=== PATIENT | male | born 1940 | race Caucasian/White ===

== ENCOUNTER → 2016-09-06 | Outpatient (CLI) | payer MEDICARE ==
[~2016-09-06] MED LIST: ALBU8I INH; ASCO500C PO; ATOR40TA49 PO; CARV6.252 PO; CLON.1 PO; CLOT1CRE TOP; COZA50TA PO; FENO1TAB76 PO; FURO1TAB93 PO; HYDR-2768 PO; PRED20 PO; PROS5TAB2 PO; VALA500 PO; VITA200017 PO
--- NOTE | 2016-09-07 09:30 | RSPPFT ---
DATE OF PROCEDURE: 09/06/16 COMMENTS: Spirometry with FVC of 2.3 predicted 3.9, FEV1 of 1.5 predicted 2.6, FEV1/FVC ratio 66% predicted 65%. Air trapping is present with RV at 3.0 predicted 2.4. DLCO is 34% of predicted. IMPRESSION: On the basis of the above, patient has an obstructive lung defect with air trapping and decreased DLCO.
== END ==
LOC: HRSP 13:02
PROVIDERS: ATTEND Internal Medicine Pulmonary Disease
DX: J84.10 Pulmonary fibrosis, unspecified (principal)
CPT/HCPCS: 94060; 94620; 94726; 94729

== ENCOUNTER → 2017-01-24 | Day surgery (SDC) | payer MEDICARE ==
[~2017-01-24] VITALS: Ht 172.7 cm; Wt 100.4 kg
[~2017-01-24] MED LIST changes: -ALBU8I INH; +ALBUAER3 INH; -ASCO500C PO; +ATOR40TA16 PO; -ATOR40TA49 PO; +BACITRACIN TOP OINT 15 GM TUBE ONE; +CEPH-459 PO; +CHLORHEXIDINE GLUCONATE 2 % 1 PACK (2 CLOTHS) TOPICAL PRN; +CIPR-9 PO; -CLON.1 PO; +CLON0.1D T-DERMAL; +CLON0.1T PO; -CLOT1CRE TOP; -COZA50TA PO; +DO NOT ADM ANY ANTICOAGULANT DRUGS PRN; +FAMOTIDINE 20 MG/2 ML VIAL ONE; -FENO1TAB76 PO; +FENO48TA PO; +FINA5TAB2 PO; -FURO1TAB93 PO; +FURO40TA PO; -HYDR-2768 PO; +INSULIN HUMAN REGULAR 1,000 UNITS/10 ML VIAL SQ PRN; +LACTATED RINGER'S 1000 ML IV PRN; +LOSA50TA PO; +LOTR1CRE TOPICAL; +METOPROLOL TARTRATE 25 MG TAB PO PRN; +MIDAZOLAM HCL 2 MG/2 ML VIAL ONE; +ONDANSETRON HCL 4 MG/2 ML VIAL IV PUSH ONE; +ONDANSETRON HCL 4 MG/2 ML VIAL IV PUSH PRN; +PERC5TAB12 PO; +PHENYLEPH/NS 1000 MCG/10 ML SYR IV ONE; +POVIDONE IODINE 5% (ANTISEPSIS KIT) 4 APPLICATIONS EACH NARE PRN; +PRED10 PO; -PRED20 PO; +PROPOFOL 200 MG/20 ML AMP IV ONE; -PROS5TAB2 PO; +SODIUM CHLORID 0.9% 500 ML IV PRN; -VALA500 PO; +VITA2000 PO; -VITA200017 PO; +VITA500T83 PO; +ceFAZolin 2 GM PREMIX 50 ML IV SCH; +ePHEDrine/NS 25 MG/5 ML SYR IV ONE; +oxyCODONE/ACETAMINOPHEN 5 MG/325 MG TAB PO PRN
[2017-01-24 10:07] LABS: AUTOMATED NEUTROPHIL # 8.2 TH/MM3 (1.8-7.7); BASOPHIL # 0.1 TH/MM3 (0-0.2); BASOPHIL % 0.6 % (0.0-2.0); EOSINOPHIL # 0.4 TH/MM3 (0-0.4); EOSINOPHIL % 3.3 % (0.0-4.0); HEMATOCRIT 40.5 % (39.0-51.0); HEMO FLAGS DIFF FINAL; LYMPHOCYTE # 1.7 TH/MM3 (1.0-4.8); MEAN CELL VOLUME 87.4 FL (80.0-100.0); MEAN CORPUSCULAR HGB CONC 33.1 % (32.0-36.0); MONO % 8.1 % (0.0-8.0); PLATELET COUNT 224 TH/MM3 (150-450); RED BLOOD COUNT 4.64 MIL/MM3 (4.50-5.90); RED CELL DISTRIBUTION WIDTH 14.6 % (11.6-17.2); WHITE BLOOD COUNT 11.2 TH/MM3 (4.0-11.0)
--- NOTE | 2017-01-24 14:31 | EKG ---
Date Performed: 01/24/2017 Time Performed: 09:56:53 PTAGE: 76 years EKG: SINUS BRADYCARDIA LOW QRS VOLTAGE IN PRECORDIAL LEADS NONSPECIFIC T-WAVE ABNORMALITY BORDER LINE ECG Compared to prior tracing no significant change PREVIOUS TRACING : 01/18/2015 13.24 DOCTOR: Garth Wooten Interpretating Date/Time 01/24/2017 14:26:44
--- NOTE | 2017-01-24 16:37 | PD.OP ---
Operative Report Date of Surgery: Jan 24, 2017 Preoperative Diagnosis: (1) BPH (benign prostatic hypertrophy) with urinary obstruction (2) Disorder of male genital organ Postoperative Diagnosis: (1) BPH (benign prostatic hypertrophy) with urinary obstruction (2) Disorder of male genital organ Procedure: Cystoscopy and scrotal recession procedure Anesthesia: General Surgeon: Clay Kaplan Maid Supervisor(s): None Operation and Findings: Indication for procedure: Case of a pleasant 76-year-old gentleman with a gentle abnormality and lower urinary tract symptoms who presents now for cystoscopic evaluation and a scrotal recession procedure. Operative procedure in detail: Patient was brought to the operating suite and placed supine on the OR table. He was then placed under general anesthesia. He was then repositioned in the dorsolithotomy position and prepped and draped in normal sterile fashion. After appropriate timeout was undertaken I proceeded with cystoscopic evaluation utilizing the rigid cystoscope with the 20 Macedonian sheath and 30 lens. The urethra was patent without stricture formation, the prostatic urethra was patent without significant obstruction and further passive cystoscope within the urinary bladder revealed both right and left ureteral orifices to be in correct anatomic position effluxing clear yellow urine. The bladder itself was mild to moderately trabeculated. There was no evidence of any bladder tumor or stone formation. The patient was then repositioned in the supine position and reprepped and draped again in normal sterile fashion. The focus of attention now was towards correcting the genital deformity with high attachment of the scrotum to the distal penile shaft. A transverse incision was made with the scrotum attached to distal penile shaft approximately 3 cm in length. The tissue edges were mobilized and then the wound was closed utilizing a Heineke-Mikulicz type closure with recession of the scrotum. Both 3-0 and 2-0 chromic suture material was utilized to effect this closure with 3-0 chromic on the penile shaft and 2-0 chromic on the scrotal edges. Once the wound was closed adequate cosmesis was achieved. Neosporin ointment was placed at the wound site and a dressing applied that consisted of fluffed gauze held in place with mesh panties. The patient tolerated the procedures without complications and was transferred to PACU in satisfactory condition. Clay Kaplan MD Jan 24, 2017 16:37
[2017-01-24 18:10] VITALS: BP 186/78; PULSE 55; RESP 16; TEMP 97.5; O2SAT 94
== END | disposition home or self-care (01) ==
LOC: HSDC 08:51
PROVIDERS: ATTEND Urology
DX: N40.1 Benign prostatic hyperplasia with lower urinary tract symptoms (principal); N13.8 Other obstructive and reflux uropathy; R33.8 Other retention of urine; N41.1 Chronic prostatitis; I10 Essential (primary) hypertension; R73.03 Prediabetes; M06.9 Rheumatoid arthritis, unspecified; Z95.5 Presence of coronary angioplasty implant and graft; Z87.891 Personal history of nicotine dependence; Z01.810 Encounter for preprocedural cardiovascular examination; Z01.818 Encounter for other preprocedural examination
CPT/HCPCS: 00920; 52000; 55175; 85025; 93005; J0690; J2250; J2370; J2405; J3010; J7120

== ENCOUNTER 2017-04-27 20:14 | Emergency (ER) | payer MEDICARE ==
[~2017-04-27 20:14] MED LIST changes: -BACITRACIN TOP OINT 15 GM TUBE ONE; -CEPH-459 PO; -CHLORHEXIDINE GLUCONATE 2 % 1 PACK (2 CLOTHS) TOPICAL PRN; -CIPR-9 PO; -DO NOT ADM ANY ANTICOAGULANT DRUGS PRN; -FAMOTIDINE 20 MG/2 ML VIAL ONE; -FURO40TA PO; -INSULIN HUMAN REGULAR 1,000 UNITS/10 ML VIAL SQ PRN; -LACTATED RINGER'S 1000 ML IV PRN; -LOTR1CRE TOPICAL; -METOPROLOL TARTRATE 25 MG TAB PO PRN; -MIDAZOLAM HCL 2 MG/2 ML VIAL ONE; -ONDANSETRON HCL 4 MG/2 ML VIAL IV PUSH ONE; -ONDANSETRON HCL 4 MG/2 ML VIAL IV PUSH PRN; -PERC5TAB12 PO; -PHENYLEPH/NS 1000 MCG/10 ML SYR IV ONE; -POVIDONE IODINE 5% (ANTISEPSIS KIT) 4 APPLICATIONS EACH NARE PRN; -PROPOFOL 200 MG/20 ML AMP IV ONE; -SODIUM CHLORID 0.9% 500 ML IV PRN; -ceFAZolin 2 GM PREMIX 50 ML IV SCH; -ePHEDrine/NS 25 MG/5 ML SYR IV ONE; -oxyCODONE/ACETAMINOPHEN 5 MG/325 MG TAB PO PRN
[2017-04-27 20:23] VITALS: BP 224/107; PULSE 102; RESP 22; TEMP 100.3; O2SAT 94
[2017-04-27] MEDS ORDERED: methylPREDNISolone SOD SUCC 125 MG/2 ML VIAL IV PUSH ONE (20:45)
[2017-04-27] MEDS ORDERED: ACETAMINOPHEN 325 MG TAB PO ONE (20:45)
--- NOTE | 2017-04-27 20:54 | PD ---
HPI Chief Complaint: Respiratory Distress Time Seen by Provider: 20:25 Travel History International Travel<30 days: No Contact w/Intl Traveler<30days: No Traveled to known affect area: No History of Present Illness HPI 76 YO M with PMH of pulmonary fibrosis, on Hospice presents to the ED via EMS for evaluation of fever, and worsening breathing difficulties. The family is at bedside and states that the patient had signed a DNR. However whenever he began to worsen today the family decided to seek treatment here in the ED. I discussed this with the hospice care provider and this was confirmed. PFSH Past Medical History Hx Anticoagulant Therapy: Yes Arthritis: Yes Asthma: No Blood Disorders: No Heart Rhythm Problems: No Cancer: No Cardiovascular Problems: Yes High Cholesterol: Yes Chemotherapy: No Chest Pain: Yes Congestive Heart Failure: No COPD: Yes Cerebrovascular Accident: No Diabetes: Yes ("BORDERLINE") Patient Takes Glucophage: No Diminished Hearing: Yes Endocrine: No GERD: Yes Glaucoma: No Genitourinary: No Hepatitis: No Hiatal Hernia: Yes Hypertension: Yes Immune Disorder: No Implanted Vascular Access Dvce: Yes Musculoskeletal: Yes (ARTHRITIS- BACK AND NECK PAIN) Neurologic: No Psychiatric: No Reproductive: Yes (BPH) Respiratory: Yes (PULMONARY FIBROSIS) Radiation Therapy: Yes Sleep Apnea: Yes Thyroid Disease: No Tetanus Vaccination: Unknown Past Surgical History Abdominal Surgery: No AICD: No Arteriovenous Shunt: No Body Medical Devices: CARDIAC STENTS Cardiac Surgery: Yes (STENT) Ear Surgery: No Endocrine Surgery: No Eye Surgery: No Genitourinary Surgery: Yes (CYSTOSCOPY, TURP) Gynecologic Surgery: No Insulin Pump: No Joint Replacement: No Oral Surgery: Yes (TONSILLECTOMY) Pacemaker: No Thoracic Surgery: Yes (BRONHOSCOPY- LUNG BIOPSY) Tonsillectomy: Yes Other Surgery: Yes (RIGHT SHOULDER 07/24/14) Social History Alcohol Use: Yes (OCC) Tobacco Use: No Substance Use: No Allergies-Medications (Allergen,Severity, Reaction): Coded Allergies: No Known Allergies (Verified , 02/16/17) Reported Meds & Prescriptions Reported Meds & Active Scripts Active Finasteride 5 Mg Tab 5 Mg PO DAILY Do not crush. Reported Clonidine 168 HR Patch (Clonidine HCl) 0.1 Mg/24 Hr Patch 1 Patch T-DERMAL Q7D Losartan (Losartan Potassium) 50 Mg Tab 50 Mg PO BID Fenofibrate 48 Mg Tab 48 Mg PO DAILY Clonidine (Clonidine HCl) 0.1 Mg Tab 0.1 Mg PO BID Vitamin D3 (Cholecalciferol) 2,000 Unit Cap 2,000 Units PO DAILY Carvedilol 6.25 Mg Tab 6.25 Mg PO BID Atorvastatin (Atorvastatin Calcium) 40 Mg Tab 80 Mg PO HS Vitamin C ER (Ascorbic Acid) 500 Mg Sundeep 500 Mg PO DAILY Proair Hfa 8.5 GM Inh (Albuterol Sulfate) 90 Mcg/Act Aer 2 Puff INH Q4-6H PRN 108 mcg/actuation Prednisone 10 Mg Tab 10 Mg PO DAILY Review of Systems Except as stated in HPI: all other systems reviewed are Neg Physical Exam Narrative GENERAL: Well-nourished, well-developed male, on 4 L nasal cannula, in no acute distress. Patient is responsive to painful stimuli only. Unable to answer questions. SKIN: Focused skin assessment warm/dry. HEAD: Normocephalic. EYES: No scleral icterus. No injection or drainage. NECK: Supple, trachea midline. No JVD or lymphadenopathy. CARDIOVASCULAR: Regular rate and rhythm without murmurs, gallops, or rubs. RESPIRATORY: Breath sounds tight, wheezing bilaterally. + accessory muscle use. GASTROINTESTINAL: Abdomen soft, non-tender, nondistended. MUSCULOSKELETAL: No cyanosis, or edema. BACK: Nontender without obvious deformity. No CVA tenderness. Data Data Last Documented VS Vital Signs Date Time Temp Pulse Resp B/P (MAP) Pulse Ox O2 Delivery O2 Flow Rate FiO2 04/27/17 21:15 15 96 Nasal Cannula 4.00 04/27/17 20:23 100.3 102 224/107 (146) Orders Orders Sepsis Workup Initiated (04/27/17 ) Electrocardiogram (04/27/17 20:37) Complete Blood Count With Diff (04/27/17 20:37) Comprehensive Metabolic Panel (04/27/17 20:37) Prothrombin Time / Inr (Pt) (04/27/17 20:37) Act Partial Throm Time (Ptt) (04/27/17 20:37) Lactic Acid Sepsis Protocol (04/27/17 20:37) Magnesium (Mg) (04/27/17 20:37) Troponin I (04/27/17 20:37) Urinalysis - C+S If Indicated (04/27/17 20:37) Blood Culture (04/27/17 20:37) Chest, Single Ap (04/27/17 20:37) Blood Glucose (04/27/17 20:37) Ecg Monitoring (04/27/17 20:37) Iv Access Insert/Monitor (04/27/17 20:37) Oximetry (04/27/17 20:37) Oxygen Administration (04/27/17 20:37) Albuterol Neb (Albuterol Neb) (04/27/17 20:45) Arterial Blood Gas (Abg) (04/27/17 ) Cefepime Inj (Maxipime Inj) (04/27/17 20:55) Azithromycin Inj (Zithromax Inj) (04/27/17 20:55) Acetaminophen Supp (Tylenol Supp) (04/27/17 21:15) Succinylcholine Inj (Quelicin Inj) (04/27/17 21:18) Etomidate Inj (Amidate Inj) (04/27/17 21:19) Ed Comfort Care (04/27/17 22:30) Hospice Consult (04/27/17 22:31) Labs Laboratory Tests Test 04/27/17 20:45 04/27/17 21:00 White Blood Count 13.5 TH/MM3 Red Blood Count 4.92 MIL/MM3 Hemoglobin 14.6 GM/DL Hematocrit 43.9 % Mean Corpuscular Volume 89.4 FL Mean Corpuscular Hemoglobin 29.8 PG Mean Corpuscular Hemoglobin Concent 33.3 % Red Cell Distribution Width 14.6 % Platelet Count 302 TH/MM3 Mean Platelet Volume 7.6 FL Neutrophils (%) (Auto) 69.4 % Lymphocytes (%) (Auto) 14.5 % Monocytes (%) (Auto) 8.7 % Eosinophils (%) (Auto) 6.9 % Basophils (%) (Auto) 0.5 % Neutrophils # (Auto) 9.4 TH/MM3 Lymphocytes # (Auto) 1.9 TH/MM3 Monocytes # (Auto) 1.2 TH/MM3 Eosinophils # (Auto) 0.9 TH/MM3 Basophils # (Auto) 0.1 TH/MM3 CBC Comment DIFF FINAL Differential Comment Prothrombin Time 10.1 SEC Prothromb Time International Ratio 0.9 RATIO Activated Partial Thromboplast Time 25.5 SEC Blood Urea Nitrogen 18 MG/DL Creatinine 1.38 MG/DL Random Glucose 116 MG/DL Total Protein 7.7 GM/DL Albumin 3.4 GM/DL Calcium Level 9.2 MG/DL Magnesium Level 1.8 MG/DL Alkaline Phosphatase 103 U/L Aspartate Amino Transf (AST/SGOT) 34 U/L Alanine Aminotransferase (ALT/SGPT) 37 U/L Total Bilirubin 0.6 MG/DL Sodium Level 136 MEQ/L Potassium Level 4.1 MEQ/L Chloride Level 96 MEQ/L Carbon Dioxide Level 34.1 MEQ/L Anion Gap 6 MEQ/L Estimat Glomerular Filtration Rate 50 ML/MIN Troponin I 0.07 NG/ML Lactic Acid Level 0.9 mmol/L MDM Medical Decision Making Medical Screen Exam Complete: Yes Emergency Medical Condition: Yes Differential Diagnosis End-stage pulmonary fibrosis versus organ failure versus sepsis versus other Narrative Course 76 YO M with PMH of pulmonary fibrosis, on Hospice presents to the ED via EMS for evaluation of fever, and worsening breathing difficulties. The family is at bedside and states that the patient had signed a DNR. However whenever he began to worsen today the family decided to seek treatment here in the ED. I discussed this with the hospice care provider and this was confirmed. Vitals reviewed. On physical exam the patient is struggling to breathe, unresponsive. ABG reveals pH of 7.27 with CO2 of 77. I discussed the patient's grave situation with the family who are at bedside. After some deliberation they have decided to sign a DNR and would like to have the patient admitted to hospice care here. Call placed to the hospice care nurse Leah. Patient will be admitted to the hospitalist service. Please see their notes for disposition. Yumiko Hardin Apr 27, 2017 20:54
[2017-04-27] MEDS ORDERED: AZITHROMYCIN INJ 500 MG in SODIUM CHLOR 0.9% 250 ML INJ 250 ML IV STA (20:55)
[2017-04-27] MEDS ORDERED: CEFEPIME INJ 2,000 MG in SODIUM CHLORIDE 0.9% INJ 100 ML IV STA (20:55)
[2017-04-27] MEDS: RESP: ALBUTEROL 2.5 MG/3 ML NEB (SCH) INH ×2 (21:02→21:03)
[2017-04-27 21:08] VITALS: O2SAT 97
[2017-04-27 21:15] VITALS: RESP 15; O2SAT 96
[2017-04-27] MEDS ORDERED: ACETAMINOPHEN 650 MG SUPP RECTAL ONE (21:15)
[2017-04-27] MEDS ORDERED: SUCCINYLCHOLINE CHLORIDE 200 MG/10 ML VIAL ONE (21:18)
[2017-04-27] MEDS ORDERED: ETOMIDATE 20 MG/10 ML VIAL ONE (21:19)
--- NOTE | 2017-04-27 21:27 | RADRPT ---
EXAM DATE/TIME: 04/27/2017 21:05 [facility] COMPARISON: CHEST SINGLE AP, January 18, 2015, 13:52. INDICATIONS : Shortness of breath. MEDICAL HISTORY : None. SURGICAL HISTORY : None. ENCOUNTER: Initial ACUITY: 1 day PAIN SCORE: Non-responsive. LOCATION: chest FINDINGS: A single view of the chest demonstrates stable, diffuse interstitial prominence most severe in the ap ices characteristic of some degree of fibrosis. I do not see a superimposed acute infiltrate or obvio us effusion. Heart size remains prominent. Small metallic pin in the proximal right humerus is charac teristic of a prior rotator cuff repair. Osseous structures are otherwise intact. CONCLUSION: Stable interstitial prominence characteristic of fibrosis, most prominent in the right apex. Nacho Villegas MD on April 27, 2017 at 21:21 Board Certified Radiologist. This report was verified electronically.
[2017-04-27 21:47] LABS: AUTOMATED NEUTROPHIL # 9.4 TH/MM3 (1.8-7.7); BASOPHIL # 0.1 TH/MM3 (0-0.2); BASOPHIL % 0.5 % (0.0-2.0); EOSINOPHIL # 0.9 TH/MM3 (0-0.4); EOSINOPHIL % 6.9 % (0.0-4.0); HEMATOCRIT 43.9 % (39.0-51.0); HEMO FLAGS DIFF FINAL; LYMPH % 14.5 % (9.0-44.0); LYMPHOCYTE # 1.9 TH/MM3 (1.0-4.8); MEAN CELL VOLUME 89.4 FL (80.0-100.0); MEAN CORPUSCULAR HEMOGLOBIN 29.8 PG (27.0-34.0); MEAN CORPUSCULAR HGB CONC 33.3 % (32.0-36.0); MONO % 8.7 % (0.0-8.0); NEUT % 69.4 % (16.0-70.0); PLATELET COUNT 302 TH/MM3 (150-450); RED BLOOD COUNT 4.92 MIL/MM3 (4.50-5.90); RED CELL DISTRIBUTION WIDTH 14.6 % (11.6-17.2); WHITE BLOOD COUNT 13.5 TH/MM3 (4.0-11.0)
[2017-04-27 21:56] LABS: APTT (PATIENT) 25.5 SEC (24.3-30.1); INTERNATIONAL NORMALIZED RATIO 0.9 RATIO; PROTHROMBIN TIME - PATIENT 10.1 SEC (9.8-11.6)
[2017-04-27 22:00] LABS: ANION GAP 6 MEQ/L (5-15); AST (GOT) 34 U/L (15-37); BICARBONATE 34.1 MEQ/L (21.0-32.0); BLOOD UREA NITROGEN 18 MG/DL (7-18); CHLORIDE 96 MEQ/L (98-107); GLOMERULAR FILTRATION RATE 50 ML/MIN (>89); MAGNESIUM 1.8 MG/DL (1.5-2.5); POTASSIUM 4.1 MEQ/L (3.5-5.1); SODIUM (NA) 136 MEQ/L (136-145)
[2017-04-27 22:01] LABS: ALT (GPT) 37 U/L (12-78)
[2017-04-27 22:05] LABS: ALKALINE PHOSPHATASE 103 U/L (45-117); TOTAL BILIRUBIN ADULT 0.6 MG/DL (0.2-1.0)
[2017-04-27 23:39] LABS: BLOOD GAS BASE EXCESS 7.8 mmol/L (-2-2); BLOOD GAS CARBOXYHEMOGLOBIN 1.2 % (0-4); BLOOD GAS HCO3 35 mmol/L (22-26); BLOOD GAS METHEMOGLOBIN 0.9 % (0-2); BLOOD GAS O2 HGB SATURATION 78 % (90-100); BLOOD GAS OXYGEN CONTENT 16.5 Vol % (12.0-20.0); BLOOD GAS PCO2 77 mmHg (38-42); BLOOD GAS PO2 49 mmHG (61-120)
[2017-04-27 23:40] LABS: CRITICAL VALUE YES
[2017-04-27 23:41] LABS: DRAW SITE RT RADIAL; LITER FLOW 4 L/M; NUMBER OF ARTERIAL PUNCTURES 1; OXYGEN DEVICE NASAL CANNULA; STAT YES; ULNAR PULSE PRESENT
[2017-04-28] MEDS ORDERED: LORazepam 2 MG/ML VIAL IV PUSH ONE (02:15)
--- NOTE | 2017-04-28 04:30 | PD ---
Physical Exam Narrative Patient was seen by me and my equity sales assistant. Data Data Last Documented VS Vital Signs Date Time Temp Pulse Resp B/P (MAP) Pulse Ox O2 Delivery O2 Flow Rate FiO2 04/27/17 21:15 15 96 Nasal Cannula 4.00 04/27/17 20:23 100.3 102 224/107 (146) Orders Orders Sepsis Workup Initiated (04/27/17 ) Electrocardiogram (04/27/17 20:37) Complete Blood Count With Diff (04/27/17 20:37) Comprehensive Metabolic Panel (04/27/17 20:37) Prothrombin Time / Inr (Pt) (04/27/17 20:37) Act Partial Throm Time (Ptt) (04/27/17 20:37) Lactic Acid Sepsis Protocol (04/27/17 20:37) Magnesium (Mg) (04/27/17 20:37) Troponin I (04/27/17 20:37) Blood Culture (04/27/17 20:37) Chest, Single Ap (04/27/17 20:37) Blood Glucose (04/27/17 20:37) Ecg Monitoring (04/27/17 20:37) Iv Access Insert/Monitor (04/27/17 20:37) Oximetry (04/27/17 20:37) Oxygen Administration (04/27/17 20:37) Albuterol Neb (Albuterol Neb) (04/27/17 20:45) Arterial Blood Gas (Abg) (04/27/17 ) Cefepime Inj (Maxipime Inj) (04/27/17 20:55) Azithromycin Inj (Zithromax Inj) (04/27/17 20:55) Acetaminophen Supp (Tylenol Supp) (04/27/17 21:15) Succinylcholine Inj (Quelicin Inj) (04/27/17 21:18) Etomidate Inj (Amidate Inj) (04/27/17 21:19) Ed Comfort Care (04/27/17 22:30) Hospice Consult (04/27/17 22:31) Ed Discharge Order (04/28/17 00:00) Lorazepam Inj (Ativan Inj) (04/28/17 02:15) Labs Laboratory Tests Test 04/27/17 20:45 04/27/17 21:00 04/27/17 21:03 White Blood Count 13.5 TH/MM3 Red Blood Count 4.92 MIL/MM3 Hemoglobin 14.6 GM/DL Hematocrit 43.9 % Mean Corpuscular Volume 89.4 FL Mean Corpuscular Hemoglobin 29.8 PG Mean Corpuscular Hemoglobin Concent 33.3 % Red Cell Distribution Width 14.6 % Platelet Count 302 TH/MM3 Mean Platelet Volume 7.6 FL Neutrophils (%) (Auto) 69.4 % Lymphocytes (%) (Auto) 14.5 % Monocytes (%) (Auto) 8.7 % Eosinophils (%) (Auto) 6.9 % Basophils (%) (Auto) 0.5 % Neutrophils # (Auto) 9.4 TH/MM3 Lymphocytes # (Auto) 1.9 TH/MM3 Monocytes # (Auto) 1.2 TH/MM3 Eosinophils # (Auto) 0.9 TH/MM3 Basophils # (Auto) 0.1 TH/MM3 CBC Comment DIFF FINAL Differential Comment Prothrombin Time 10.1 SEC Prothromb Time International Ratio 0.9 RATIO Activated Partial Thromboplast Time 25.5 SEC Blood Urea Nitrogen 18 MG/DL Creatinine 1.38 MG/DL Random Glucose 116 MG/DL Total Protein 7.7 GM/DL Albumin 3.4 GM/DL Calcium Level 9.2 MG/DL Magnesium Level 1.8 MG/DL Alkaline Phosphatase 103 U/L Aspartate Amino Transf (AST/SGOT) 34 U/L Alanine Aminotransferase (ALT/SGPT) 37 U/L Total Bilirubin 0.6 MG/DL Sodium Level 136 MEQ/L Potassium Level 4.1 MEQ/L Chloride Level 96 MEQ/L Carbon Dioxide Level 34.1 MEQ/L Anion Gap 6 MEQ/L Estimat Glomerular Filtration Rate 50 ML/MIN Troponin I 0.07 NG/ML Lactic Acid Level 0.9 mmol/L Blood Gas Puncture Site RT RADIAL Blood Gas Patient Temperature 37.0 Blood Gas HCO3 35 mmol/L Blood Gas Base Excess 7.8 mmol/L Blood Gas Oxygen Saturation 78 % Arterial Blood pH 7.27 Arterial Blood Partial Pressure CO2 77 mmHg Arterial Blood Partial Pressure O2 49 mmHG Arterial Blood Oxygen Content 16.5 Vol % Arterial Blood Carboxyhemoglobin 1.2 % Arterial Blood Methemoglobin 0.9 % Blood Gas Hemoglobin 15.0 G/DL Oxygen Delivery Device NASAL CANNULA Blood Gas Liter Flow 4 L/M [facility] Supervised Visit with YOLANDA: Yes Diagnosis Primary Impression: Respiratory failure Qualified Codes: J96.02 - Acute respiratory failure with hypercapnia Additional Impression: Pulmonary fibrosis Additional Instruction: Patient will be admitted to hospice care center. Family decided DNR. DNR form signed. Med/Other Pt SpecificInfo: No Change to Meds Disposition: 51 HOSPICE/MED FACILITY Condition: Serious Aj Fisher MD Apr 28, 2017 04:30
--- NOTE | 2017-04-28 16:20 | EKG ---
Date Performed: 04/27/2017 Time Performed: 21:15:08 PTAGE: 76 years EKG: Sinus rhythm POSSIBLE LEFT ATRIAL ENLARGEMENT BORDERLINE ECG Since PREVIOUS TRACING , no significant change noted PREVIOUS TRACIN01/24/2017 09.56 DOCTOR: Beth Stephens Interpretating Date/Time 04/28/2017 16:18:30
== END 2017-04-28 06:01 | disposition hospice, inpatient (51) ==
LOC: NEPE 20:14
DX: J96.90 Respiratory failure, unspecified, unspecified whether with hypoxia or hypercapnia (principal); J84.10 Pulmonary fibrosis, unspecified; M19.90 Unspecified osteoarthritis, unspecified site; E78.00 Pure hypercholesterolemia, unspecified; I10 Essential (primary) hypertension; J44.9 Chronic obstructive pulmonary disease, unspecified; E11.9 Type 2 diabetes mellitus without complications; K21.9 Gastro-esophageal reflux disease without esophagitis; N40.0 Benign prostatic hyperplasia without lower urinary tract symptoms
CPT/HCPCS: 36600; 71010; 80053; 82805; 83605; 83735; 84484; 85025; 85610; 85730; 87040; 87185; 87205; 93005; 94640; 94664; 96365; 96367; 96375; 99285; J0456; J0692; J2060; J7050; J7613; J0330